=== PATIENT | female | born 2000 | race Asian ===

== ENCOUNTER 2021-06-08 23:17 | Emergency (ER) | payer OTHER ==
[2021-06-08 23:24] VITALS: BP 137/108; PULSE 132; TEMP 99.8; BMI 28.3
== END 2021-06-08 23:40 | disposition home or self-care (01) ==
LOC: FER 23:17
DX: S01.01XA Laceration without foreign body of scalp, initial encounter (principal); W00.1XXA Fall from stairs and steps due to ice and snow, initial encounter; Y92.9 Unspecified place or not applicable
CPT/HCPCS: 99283-25